=== PATIENT | female | born 1995 ===

== ENCOUNTER 2018-06-11 06:08 | Inpatient (IN) ==
[2018-06-13 07:16] VITALS: BP 121/68
== END 2018-06-13 13:45 | disposition home or self-care (01) | DRG 540 ==
LOC: N.LDOUT 06:08 → N.LD 06:10 → N.OB 15:29
PROVIDERS: ADMIT Obstetrics & Gynecology; ATTEND Obstetrics & Gynecology
PROC: LDCSECT (ICD-10-PCS; 2018-06-11 09:00)